=== PATIENT | male | born 1980 | race Two or more races ===

== ENCOUNTER 2019-06-28 10:18 | Emergency (ER) | payer MEDICARE, MEDICAID ==
[~2019-06-28] VITALS: Ht 154.9 cm; Wt 81.6 kg
[2019-06-28 10:34] VITALS: BP 129/89
--- NOTE | 2019-06-28 12:17 | Diagnostic Imaging Report ---
Indication: Right hand pain Findings: 3 views of the right hand were obtained. There is generalized soft tissue swelling of the hand especially in the dorsal region. There is an acute nondisplaced fracture of the second proximal phalange. The fracture involves the mid shaft with the fracture line oriented vertically extending into the PIP joint. IMPRESSION: Acute fracture of the second proximal phalange extending into the PIP joint
--- NOTE | 2019-06-28 12:24 | Emergency Room Report ---
History of Present Illness General Chief Complaint: Upper Extremity Injury Source: Caregiver Present Illness HPI Patient with developmental delay presents 2 days after allegedly hitting a wall. Today staff noted increased swelling tenderness. The patient is unable to communicate. Apparently the patient has emotional outbursts where he punches things. History of diabetes and Parkinson's. Allergies: Coded Allergies: No Known Allergies (Unverified , 06/28/19) Patient History Past Medical History: see triage record Social History: Denies: smoking, alcohol use, drug use Social History Narrative Residential facility Reviewed Nursing Documentation: PMH: Agreed; PSxH: Agreed Nursing Documentation-PMH Past Medical History: No History, Except For Hx Cardiac Problems: No - Parkinson Hx Diabetes: Yes Review of Systems All Other Systems: limited Physical Exam Vital Signs Date Time Temp Pulse Resp B/P (MAP) Pulse Ox O2 Delivery O2 Flow Rate FiO2 06/28/19 10:23 97.9 89 18 129/89 (102) 97 Room Air Sp02 EP Interpretation: reviewed, normal General Appearance: well appearing, no apparent distress, alert, other - Noncommunicative Head: normocephalic, atraumatic Eyes: bilateral eye normal inspection, bilateral eye PERRL ENT: moist mucus membranes Neck: full range of motion Respiratory: normal inspection Cardiovascular #1: regular rate, rhythm Cardiovascular #2: 2+ radial (R) - Capillary refill Gastrointestinal: normal inspection Musculoskeletal: gait/station normal, decreased range of mation, swelling - Dorsum of right hand, tenderness - Right hand and index finger Neurologic: alert, motor strength/tone normal, sensory intact, other - Unable to fully assess distal neurovascular due to developmental delay Psychiatric: mood/affect normal Skin: warm/dry, hematoma - Dorsum of right hand Medical Decision Making Diagnostic Impression: Primary Impression: Finger fracture, right Qualified Codes: S62.640A - Nondisplaced fracture of proximal phalanx of right index finger, initial encounter for closed fracture Additional Impression: Developmental delay ER Course Patient presents with swelling of his right hand after getting a wall. Differential includes fracture, contusion versus sprain. Complicated patient as she is unable to give history. X-rays are indicated. The patient is given a dose of Motrin. X-rays reveal nondisplaced fracture index proximal phalanx. Splint is applied. Patient is excellent and distal vascular is normal. Does withdrawal when fingers touch. Discussed findings with planning director. Patient stable for outpatient observation and treatment. Other X-Ray Diagnostic Results Other X-Ray Diagnostic Results : X-Ray ordered: Right hand # of Views/Limited Vs Complete: 3 View Indication: Other EP Interpretation: Yes Interpretation: no dislocation, other - Fracture proximal phalanx index finger, soft tissue swelling Impression: Other Electronically Signed by: Electronically signed by Bernard Ghosh MD Last Vital Signs Date Time Temp Pulse Resp B/P (MAP) Pulse Ox O2 Delivery O2 Flow Rate FiO2 06/28/19 13:47 98.0 84 18 130/88 99 Room Air Status: improved Disposition: HOME, SELF-CARE Condition: Improved Scripts Ibuprofen* (MOTRIN*) 600 Mg Tablet 600 MG ORAL Q6H PRN for For Pain, #20 TAB 0 Refills Prov: Bernard Ghosh MD 06/28/19 Referrals: NON PHYSICIAN (PCP) Bernard Ghosh MD Jun 28, 2019 12:24
[2019-06-28] MEDS ORDERED: IBUPROFEN600 MG ORAL (12:25)
[2019-06-28 13:47] VITALS: BP 130/88
== END 2019-06-28 13:40 | disposition home or self-care (01) ==
LOC: EMR 11:38
DX: S62.640A Nondisplaced fracture of proximal phalanx of right index finger, initial encounter for closed fracture (principal); R62.50 Unspecified lack of expected normal physiological development in childhood; E11.9 Type 2 diabetes mellitus without complications; G20 Parkinson's disease; W22.09XA Striking against other stationary object, initial encounter; Y93.9 Activity, unspecified; Y92.9 Unspecified place or not applicable
CPT/HCPCS: 29125; 99283